=== PATIENT | female | born 1935 | race Hispanic/Latino ===

== ENCOUNTER 2017-12-17 18:51 | Emergency (ER) | payer MEDICARE ==
[2017-12-17] MEDS ORDERED: IPRATROPIUM/ALBUTEROL SULFATE 3 ML SOLUTION IH ONE (19:55)
[2017-12-17 19:57] LABS: RAPID GROUP A STREP NEGATIVE (NEGATIVE)
[2017-12-17 20:02] LABS: BASOPHILS % (AUTO) 0.9 % (0.0-5.0); EOSINOPHILS % (AUTO) 3.7 % (0.0-8.0); HEMATOCRIT 43.7 % (36-48); LYMPHOCYTES % (AUTO) 22.3 % (21.0-51.0); MEAN CORPUSCULAR HEMOGLOBIN 30.6 pg (27.0-33.0); MEAN CORPUSCULAR HGB CONC 33.8 g/dL (32.0-36.0); MEAN CORPUSCULAR VOLUME 90.5 fL (79-99); MONOCYTES % (AUTO) 6.9 % (3.0-13.0); NEUTROPHILS % (AUTO) 66.2 % (40.0-77.0); PLATELET COUNT (AUTO) 164 K/uL (130-400); RED BLOOD CELL COUNT(AUTO) 4.82 MIL/uL (4.00-5.50); RED CELL DISTRIBUTION WIDTH 13.9 % (11.0-15.5); WHITE BLOOD COUNT (AUTO) 6.2 K/uL (4.8-10.8)
[2017-12-17 20:12] LABS: CREATININE 1.6 mg/dL (0.5-1.5); POTASSIUM 4.5 mmol/L (3.5-5.1)
[2017-12-17 20:18] LABS: ALBUMIN 3.7 g/dL (3.5-5.0); BILIRUBIN,TOTAL 0.5 mg/dL (0.2-1.0); TOTAL PROTEIN, SERUM 7.2 g/dL (6.0-8.3)
== END 2017-12-17 21:15 | disposition home or self-care (01) ==
LOC: EDH 18:51
DX: J20.9 Acute bronchitis, unspecified (principal); M19.90 Unspecified osteoarthritis, unspecified site; E11.9 Type 2 diabetes mellitus without complications; I10 Essential (primary) hypertension; Z88.0 Allergy status to penicillin
CPT/HCPCS: 36415; 71045; 80053; 85025; 87804; 87880; 93005; 94640

== ENCOUNTER 2023-01-15 14:53 | Emergency (ER) | payer MEDICARE ==
[~2023-01-15] VITALS: Ht 152.4 cm; Wt 67.6 kg
[2023-01-15 15:19] VITALS: BP 127/78; PULSE 104; RESP 16
[2023-01-15] MEDS ORDERED: ACYCLOVIR 800 MG TABLET PO ONE (18:30)
[2023-01-15] MEDS ORDERED: ACYC-138 PO (19:23)
[2023-01-15] MEDS ORDERED: ACYC30OI2 TP (19:23)
[2023-01-15] MEDS ORDERED: CLIN-141 PO (19:27)
== END 2023-01-15 20:13 | disposition home or self-care (01) ==
LOC: EDH 14:53
DX: B02.9 Zoster without complications (principal); E11.9 Type 2 diabetes mellitus without complications; E78.00 Pure hypercholesterolemia, unspecified; I10 Essential (primary) hypertension

== ENCOUNTER 2024-10-24 08:53 | Emergency (ER) | payer MEDICARE, MEDICAID ==
[~2024-10-24] VITALS: Ht 152.4 cm; Wt 45.4 kg
[~2024-10-24 08:53] MED LIST: ACYC-138 PO; ACYC30OI2 TP; CLIN-141 PO
[2024-10-24 08:55] VITALS: BP 142/79; PULSE 83; RESP 16; TEMP 100.1
[2024-10-24 09:43] LABS: IMMATURE GRANULOCYTE ABSOLUTE 0.04 K/uL (0-1); NUCLEATED RED BLOOD CELLS 0.0 % (0.0-0.19); PLATELET COUNT (AUTO) 141 K/uL (130-400); RED BLOOD CELL COUNT(AUTO) 4.97 MIL/uL (4.00-5.50); RED CELL DISTRIBUTION WIDTH 12.9 % (11.0-15.5); WHITE BLOOD COUNT (AUTO) 10.8 K/uL (4.8-10.8)
[2024-10-24 09:54] LABS: CREATININE 1.2 mg/dL (0.5-1.0); GLOMERULAR FILTR. RATE CALC 44.0 mL/min (>90); GLUCOSE,RANDOM 164.0 mg/dL (70-105); SODIUM SERUM 138.0 mmol/L (136-145); UREA NITROGEN, BLOOD 19.0 mg/dL (7-18)
--- NOTE | 2024-10-24 10:07 | EKG ---
[facility] Test Date: 2024-10-24 Test Time: 09:50:42 Pat Name: MATT BOWSER Department: [facility] Room: Gender: F Gas Meter Reader: [id number] : 1935 Requested By: BRYAN LOPEZ Order Number: [id number] Reading MD: Sumi Talbot Measurements Intervals [place] Rate: 81 P: 36 [place]: 141 QRS: 12 QRSD: 92 T: 54 QT: 375 QTc: 437 Interpretive Statements Sinus rhythm Compared to ECG 12/17/2017 19:40:17 Atrial premature complex(es) no longer present Electronically Signed On 10-24-2024 14:34:32 CDT by Sumi Talbot Please click the below link to view image of tracing.
--- NOTE | 2024-10-24 10:35 | ERN ---
General Chief Complaint: Face Pain/Problem Stated Complaint: LEFT FACE PAIN, FEVER Time Seen by MD: 08:55 History of Present Illness Initial Comments An 88-year-old female presented to the emergency department with complaints of left-sided facial pain and chest pain radiating to the left arm, both of which began earlier this morning. At the time of evaluation in the ED, the facial pain had resolved, but intermittent pain persisted in the left arm. The patient described the pain as intermittent, without clear exacerbating or relieving factors. She denied current facial pain, chest pain, shortness of breath, dizziness, headache, or weakness in the facial muscles or left arm. No history of trauma was reported. Allergies: Coded Allergies: No Known Allergies (Unverified Allergy, Unknown, 01/15/23) Home Meds Active Scripts Clindamycin HCl (Clindamycin HCl) 300 Mg Capsule, 1 CAP PO QID for 10 Days, #40 CAP 0 Refills Prov:RENAN ROBLERO NP 01/15/23 Acyclovir (Zovirax) 5 % Oint, 30 GM TP 5X/DAY for 7 Days, #30 APPL Prov:RENAN ROBLERO NP 01/15/23 Acyclovir (Acyclovir) 800 Mg Tablet, 800 MG PO 5X/DAY for 10 Days, #50 TAB Prov:RENAN ROBLERO NP 01/15/23 Past Medical History Past Medical History: Diabetes-Type II, High Cholesterol, Hypertension Past Surgical History: None Female( History) History: Not Applicable Constitutional: (-) chills, (-) diaphoresis, (-) fever, (-) malaise, (-) weakness, (-) other documentation EENTM: (-) eye pain, (-) blurred vision, (-) tearing, (-) double vision, (-) ear pain, (-) ear discharge, (-) nose pain, (-) nose congestion, (-) throat pain, (-) Throat swelling, (-) mouth pain, (-) tooth pain, (-) mouth swelling, (-) other documentation Respiratory: (-) cough, (-) orthopnea, (-) short of breath, (-) stridor, (-) wheezing, (-) other documentation Cardiovascular: (-) chest pain, (-) edema, (-) palpitations, (-) syncope, (-) dyspnea on exertion, (-) other documentation Gastrointestinal/Abdominal: (-) nausea, (-) vomiting, (-) diarrhea, (-) abdominal pain, (-) abdominal distention, (-) constipation, (-) rectal bleeding, (-) dark stool/melena, (-) other documentation Genitourinary: (-) vaginal discharge, (-) vaginal bleeding, (-) dysuria, (-) frequency, (-) hematuria, (-) pain, (-) other documentation Musculoskeletal: (+) other documentation (Pain on her left side of the face extending to the left arm); (-) Neck pain, (-) back pain, (-) Flank Pain, (-) joint pain, (-) joint swelling, (-) muscle pain, (-) muscle stiffness, (-) gout Skin: (-) laceration, (-) contusion, (-) abrasion, (-) abscess, (-) rash, (-) change in color, (-) change in hair, (-) change in nails, (-) diaphoresis, (-) dryness, (-) other documentation Neuro: (-) altered mental status, (-) headache, (-) syncope, (-) paralysis, (-) numbness, (-) seizure, (-) pre-existing deficit, (-) tremors, (-) weakness, (-) dizziness, (-) slurred speech, (-) vertigo, (-) other documentation Hematologic/Lymphatic: (-) anemia, (-) blood clots, (-) easy bleeding, (-) easy bruising, (-) swollen glands, (-) other documentation Physical Exam General Appearance: (+) no apparent distress Orientation: (+) alert, (+) oriented x 3 Head/Face Trauma: No Ear, Nose, Throat: (+) hearing grossly normal Neck: (+) normal inspection, (+) supple Respiratory: (+) chest non-tender, (+) lungs clear Heart: (+) regular Vascular: (+) no edema, (+) normal peripheral pulse Gastrointestinal: (+) soft Extremities: (+) normal range of motion (Left arm range of motion consistent with her age), (+) normal inspection, (+) other (On examination there was no tenderness in her arm, face) Results Laboratory and Microbiology Lab and Micro Result Laboratory Tests Test 10/24/24 09:37 White Blood Count 10.8 K/uL (4.8-10.8) Red Blood Count 4.97 MIL/uL (4.00-5.50) Hemoglobin 14.7 g/dL (12.0-16.0) Hematocrit 45.4 % (36-48) Mean Corpuscular Volume 91.3 fL (79-99) Mean Corpuscular Hemoglobin 29.6 pg (27.0-33.0) Mean Corpuscular Hemoglobin Concent 32.4 g/dL (32.0-36.0) Red Cell Distribution Width 12.9 % (11.0-15.5) Platelet Count 141 K/uL (130-400) Mean Platelet Volume 9.4 fL (7.5-10.5) Immature Granulocyte % (Auto) 0.4 % (0-1) Neutrophils (%) (Auto) 86.9 % (40.0-77.0) H Lymphocytes (%) (Auto) 7.3 % (21.0-51.0) L Monocytes (%) (Auto) 4.8 % (3.0-13.0) Eosinophils (%) (Auto) 0.3 % (0.0-8.0) Basophils (%) (Auto) 0.3 % (0.0-5.0) Neutrophils # (Auto) 9.4 K/uL (1.8-7.7) H Lymphocytes # (Auto) 0.8 K/uL (1.0-4.8) L Monocytes # (Auto) 0.5 K/uL (0.1-1.0) Eosinophils # (Auto) 0.03 K/uL (0.00-0.70) Basophils # (Auto) 0.03 K/uL (0.00-0.20) Absolute Immature Granulocyte (auto 0.04 K/uL (0-1) Nucleated Red Blood Cells 0.0 % (0.0-0.19) White Cell Morphology Comment See comments Sodium Level 138 mmol/L (136-145) Potassium Level 4.0 mmol/L (3.5-5.1) Chloride Level 103 mmol/L (101-111) Carbon Dioxide Level 31 mmol/L (21-32) Blood Urea Nitrogen 19 mg/dL (7-18) H Creatinine 1.2 mg/dL (0.5-1.0) H Glomerular Filtration Rate Calc 44 mL/min (>90) Random Glucose 164 mg/dL (70-105) H Total Calcium 8.7 mg/dL (8.5-10.1) Troponin I High Sensitivity 12 ng/L (4-50) EKG/XRAY/US/CT/MRI EKG Comment Sinus rhythm observed. No ST-segment elevation or acute ischemic changes identified. No evidence of arrhythmia, conduction abnormality, or other acute pathology. MDM MDM: Differential diagnosis: Body ache, left neck pain Rationale: Tests considered and ordered secondary to shared decision making include: Previous outside records reviewed: Old ER visits. Risk of complication and/or morbidity or mortality of patient management: None Medications-Per medication reconciliation Need for hospitalization: Patient does meet criteria for hospitalization. Need for emergency major/minor surgery: No There are no social concerns with this patient. Prescription drug management Prescriptions will include symptomatic care Patient's prior external medical records from other ER visits were reviewed by me as indicated. Prior testing and results from previous visits were reviewed. Prior tests were taken into account with medical decision making and resource utilization, independent historian/historians were used to obtain complete medic al history. I independently interpreted the test that were performed, results were reviewed by me and considered findings on radiology if ordered. Medical management and examination interpretation discussions were had by me with other qualified healthcare professionals as indicated for the patient's care. Notified by nursing staff the patient eloped without notifying anybody ED Course Orders Procedure Category Date Status Time Cbc With Differential LAB 10/24/24 Complete 09:18 Basic Metabolic Panel LAB 10/24/24 Complete 09:18 Bedside Troponin-I LAB.ER 10/24/24 In Process (Poc) 09:18 12 Lead Ekg Tracing- EKG 10/24/24 Complete Technical 09:18 Urinalysis Profile LAB 10/24/24 Logged 09:18 Troponin I High LAB 10/24/24 Complete Sensitivity 10:58 Vital Signs Date Time Temp Pulse Resp B/P (MAP) Pulse Ox O2 Delivery O2 Flow Rate FiO2 10/24/24 08:55 100.0 83 16 142/79 96 Room Air DX & DISP Disposition: AMA Departure Impression: Primary Impression: Muscle ache Condition: Against Medical Advice Additional Instructions: Was notified by nursing staff the patient eloped Referrals: DAVID WILD (PCP) BRYAN LOPEZ MD Oct 24, 2024 10:35 MIRANDA CARBAJAL MD Oct 24, 2024 12:50
== END 2024-10-24 12:51 | disposition left against medical advice (07) ==
LOC: EDH 08:53
DX: R51.9 Headache, unspecified (principal); M79.10 Myalgia, unspecified site; R50.9 Fever, unspecified; E11.9 Type 2 diabetes mellitus without complications; E78.00 Pure hypercholesterolemia, unspecified; I10 Essential (primary) hypertension; Z79.899 Other long term (current) drug therapy
CPT/HCPCS: 36415; 80048; 84484; 85025; 93005; 99284